=== PATIENT | male | born 1995 | race Two or more races ===

== ENCOUNTER 2023-03-01 22:22 | Emergency (ER) | payer MEDICAID, OTHER ==
[~2023-03-01] VITALS: Ht 177.8 cm; Wt 72.6 kg
--- NOTE | 2023-03-01 22:34 | NUR ---
Critical lab Alcohol 162. Dr. Adamson notified.
[2023-03-01 22:44] LABS: HEMATOCRIT 46.5 % (36.7-47.1); MEAN CORPUSCULAR HEMOGLOBIN 31.4 uug (23.8-33.4); MEAN CORPUSCULAR VOLUME 91.9 fL (73.0-96.2); PLATELET COUNT (AUTO) 301 K/uL (152-348)
[2023-03-01 22:57] LABS: ETHANOL 162 MG/DL (0-0)
--- NOTE | 2023-03-01 22:58 | NUR ---
Dr. Adamson evaluating patient at bedside. MSE in progress.
--- NOTE | 2023-03-01 23:07 | NUR ---
Called [facility] to request sitter for SI. Stated no avaliable sitters at this time.
--- NOTE | 2023-03-01 23:08 | NUR ---
Patient placed next to nursing station. Monitored frequently. Removed harmful objects from patient's room.
--- NOTE | 2023-03-01 23:10 | NUR ---
[facility] at bedside for 5150 hold.
--- NOTE | 2023-03-01 23:23 | NUR ---
Urine sample sent to lab
[2023-03-01 23:25] LABS: CARBON DIOXIDE 26 mmol/L (21-32); CHLORIDE 100 mmol/L (98-107); CREATININE 0.8 mg/dL (0.6-1.3); GLUCOSE 113 mg/dL (74-106); UREA NITROGEN, BLOOD 8 mg/dL (7-18)
[2023-03-01 23:29] LABS: *BILIRUBIN,URIN NEGATIVE (NEGATIVE); *BLOOD, URINE NEGATIVE (NEGATIVE); *CLARITY,URINE CLEAR (CLEAR); *COLOR,URINE YELLOW (YELLOW); *KETONES,URINE NEGATIVE (NEGATIVE); *UROBILINOGEN,URINE 0.2 E.U./dl (NORMAL); LEUKOCYTE ESTERASE ,URINE NEGATIVE (NEGATIVE); NITRITE, URINE NEGATIVE (NEGATIVE); PH,URINE 5.5 (5.0-8.0); UGLUCOSE NEGATIVE (NEGATIVE)
[2023-03-01 23:30] LABS: ACETAMINOPHEN < 2.0 ug/mL (10-30); ALANINE AMINOTRANSFERASE 43 U/L (16-63); ALKALINE PHOSPHATASE 95 U/L (50-136); ASPARTATE AMINOTRANSFERASE 32 U/L (15-37); BILIRUBIN,DIRECT 0.2 mg/dL (0.0-0.2); BILIRUBIN,TOTAL 0.4 mg/dL (0.2-1.0); CREATINE KINASE, TOTAL 243 U/L (39-308); TOTAL PROTEIN, SERUM 8.9 g/dL (6.4-8.2)
--- NOTE | 2023-03-01 23:35 | NUR ---
Called [facility] crisis team for psychiatric evaluation.
[2023-03-01 23:40] LABS: *AMPHETAMINE, URINE NEGATIVE (NEGATIVE); *CANNABINOID, URINE NEGATIVE (NEGATIVE); *COCCAINE, URINE NEGATIVE (NEGATIVE); *PHENCYCLIDINE SCREEN,URINE NEGATIVE (NEGATIVE)
--- NOTE | 2023-03-02 00:14 | NUR ---
[facility] (crisis team) evaluating patient for psych eval.
--- NOTE | 2023-03-02 01:12 | NUR ---
Patient's clinical data faxed over to [facility].
--- NOTE | 2023-03-02 01:30 | NUR ---
Spoke to Gabino at [facility], stated bed will be avaliable after 4am. Waiting for call back for bed assignment.
--- NOTE | 2023-03-02 01:43 | NUR ---
Called [facility] ambulance to transfer patient to [place]. central supply assistant time 5AM.
--- NOTE | 2023-03-02 02:00 | NUR ---
Patient sleeping comfortably in bed. No signs of distress noted.
--- NOTE | 2023-03-02 04:00 | NUR ---
Patient stating he's feeling anxious. Dr. Adamson aware, waiting for additional orders.
--- NOTE | 2023-03-02 04:04 | NUR ---
Spoke with Gabino from [facility] [place], bed will be avaliable at 4:30am. Waiting for call back.
[2023-03-02] MEDS ORDERED: LORAZEPAM 2 MG/1 ML VIAL IM ONE (04:30)
[2023-03-02] MEDS ORDERED: LORAZEPAM 2 MG/1 ML VIAL ONE (04:36)
--- NOTE | 2023-03-02 04:42 | NUR ---
Spoke with [facility] intake. Patient has been admitted to room 128B by Dr. Toledo.
--- NOTE | 2023-03-02 04:51 | NUR ---
Report given to Cele BRADFORD
--- NOTE | 2023-03-02 05:18 | NUR ---
[facility] ambulance RA [id number] picked up patient for patient transfer to [place] via [place] with personal belongings. Patient in stable condition, no signs of distress noted.
== END 2023-03-02 05:18 ==
LOC: ER 22:22
DX: R45.851 Suicidal ideations (principal); F10.129 Alcohol abuse with intoxication, unspecified; Z20.822 Contact with and (suspected) exposure to COVID-19; Y90.6 Blood alcohol level of 120-199 mg/100 ml
CPT/HCPCS: 80076; 80048; 81003; 82550; 84443; 85025; 87426; 36415 ×2; 99285; 80299; 80320; 80307; 96372; U0003; C9803; J2060; A4663; G0480